=== PATIENT | male | born 1970 | race African-American/Black ===

== ENCOUNTER 2023-06-24 20:03 | Emergency (ER) | payer SELFPAY ==
[2023-06-24] MEDS ORDERED: Sodium Chloride 0.9% 1,000 ML IV ONE ×3 (20:27→21:07)
[2023-06-24 21:01] LABS: BASE EXCESS VENOUS -7.2 (-2.0-3.0); BICARBONATE,VENOUS 20 mEq/L (23-28); PCO2 VENOUS 46 mmHG (41-51); PH,VENOUS 7.25 (7.31-7.41)
[2023-06-24 21:03] LABS: PO2 VENOUS < 30 mmHG
[2023-06-24 21:06] LABS: BASOPHILS PERCENT AUTO 0.3 % (0.0-1.5); EOSINOPHILS PERCENT AUTO 0.5 % (0.0-7.0); HEMATOCRIT 54.3 % (38.0-50.0); HEMOGLOBIN 19.2 g/dL (13.0-17.0); LYMPHOCYTES ABSOLUTE AUTO 1.7 K/uL (0.6-2.4); LYMPHOCYTES PERCENT AUTO 27.6 % (16.0-40.0); MEAN CORPUSCULAR HEMOGLOBIN 24.8 pg (27.0-32.0); MEAN CORPUSCULAR HGB CONC 35.4 g/dL (31.0-37.0); MEAN CORPUSCULAR VOLUME 70.2 fL (80.0-98.0); MONOCYTES ABSOLUTE AUTO 0.3 K/uL (0.0-0.8); MONOCYTES PERCENT AUTO 5.4 % (0.0-15.0); NEUTROPHILS PERCENT AUTO 66.2 % (48.0-80.0); NRBC ABSOLUTE 0 K/uL; PLATELET COUNT,PLT 207 K/uL (150-400); RED BLOOD CELL COUNT 7.74 M/uL (4.50-5.90); WHITE BLOOD CELL COUNT,WBC 6.06 K/uL (4.0-11.0)
[2023-06-24 21:33] LABS: LACTIC ACID 2.6 mmol/L (0.4-2.0)
[2023-06-24 21:40] LABS: A/G RATIO 0.8 (0.9-1.6); ALBUMIN 4.2 g/dL (3.4-5.0); BILIRUBIN TOTAL 0.5 mg/dL (0.2-1.0); CALCIUM 10.1 mg/dL (8.5-10.1); CARBON DIOXIDE,CO2 20.9 mmol/L (21.0-32.0); CREATININE 1.8 mg/dL (0.8-1.3); EST CRCL DRUG DOSING (CG) 50.13 mL/min; MAGNESIUM 2.5 mg/dL (1.8-2.4); POTASSIUM,K 5.4 mmol/L (3.5-5.1); PROTEIN TOTAL,TP 9.4 g/dL (6.4-8.2)
[2023-06-24] MEDS ORDERED: Insulin Regular, Human 100 Units/ML 10 ML Vial IVPUSH ONE (21:46)
[2023-06-24] MEDS ORDERED: Ketorolac 30 MG/ML SDV IVPUSH ONE (22:35)
== END 2023-06-24 23:11 | disposition home or self-care (01) ==
LOC: MW.ED 20:03
DX: E11.65 Type 2 diabetes mellitus with hyperglycemia (principal); I10 Essential (primary) hypertension; Z91.148 Patient's other noncompliance with medication regimen for other reason; Z79.4 Long term (current) use of insulin; Z88.0 Allergy status to penicillin; Z88.8 Allergy status to other drugs, medicaments and biological substances
CPT/HCPCS: 36415; 80053; 82009; 82803; 82947; 83605; 83690; 83735; 84484; 85025; 96361; 96374; 99284; J1815; J1885; J7030

== ENCOUNTER 2024-03-24 16:00 | Emergency (ER) | payer SELFPAY ==
[2024-03-24 16:55] LABS: BASOPHILS ABSOLUTE AUTO 0.03 K/uL (0.00-0.20); BASOPHILS PERCENT AUTO 0.6 % (0.0-1.0); EOSINOPHILS ABSOLUTE AUTO 0.07 K/uL (0.00-0.45); EOSINOPHILS PERCENT AUTO 1.3 % (0.0-6.0); HEMATOCRIT 49.6 % (42.0-52.0); HEMOGLOBIN 17.3 g/dL (14.0-18.0); IMMATURE GRAN ABSOLUTE AUTO 0.01 K/uL (0.00-0.05); IMMATURE GRAN PERCENT AUTO 0.2 % (0.0-0.4); LYMPHOCYTES ABSOLUTE AUTO 1.96 K/uL (1.00-4.80); LYMPHOCYTES PERCENT AUTO 37.5 % (24.0-44.0); MEAN CORPUSCULAR HEMOGLOBIN 24.8 pg (28.0-32.0); MEAN CORPUSCULAR HGB CONC 34.9 g/dL (32.0-36.0); MEAN CORPUSCULAR VOLUME 71.1 fL (83.0-99.0); MEAN PLATELET VOLUME 10.2 fL (9.4-12.4); MONOCYTES ABSOLUTE AUTO 0.42 K/uL (0.00-0.80); NEUTROPHILS ABSOLUTE AUTO 2.74 K/uL (1.80-7.70); NEUTROPHILS PERCENT AUTO 52.4 % (41.0-71.0); PLATELET COUNT,PLT 207 K/uL (150-400); RED BLOOD CELL COUNT 6.98 M/uL (4.52-5.90); WHITE BLOOD CELL COUNT,WBC 5.23 K/uL (3.9-11.3)
[2024-03-24] MEDS: Sodium Chloride 0.9% 10 ML Syringe FLUSH PRN (17:00)
[2024-03-24] MEDS: Sodium Chloride 0.9% 2.5 ML Syringe FLUSH PRN (17:00)
[2024-03-24 17:17] LABS: A/G RATIO 0.9 (0.9-1.6); ALBUMIN 3.8 g/dL (3.4-5.0); BILIRUBIN TOTAL 0.3 mg/dL (0.2-1.0); CALCIUM 9.2 mg/dL (8.5-10.1); CARBON DIOXIDE,CO2 26.5 mmol/L (21.0-32.0); CREATININE 1.4 mg/dL (0.8-1.3); EST CRCL DRUG DOSING (CG) 61.72 mL/min; POTASSIUM,K 4.4 mmol/L (3.5-5.1); PROTEIN TOTAL,TP 7.9 g/dL (6.4-8.2)
[2024-03-24 17:20] LABS: LACTIC ACID 1.4 mmol/L (0.4-2.0)
[2024-03-24 17:37] LABS: INR 1.02 (0.86-1.11)
[2024-03-24] MEDS: Sodium Chloride 0.9% 500 ML IV STA (17:53)
== END 2024-03-24 18:17 | disposition home or self-care (01) ==
LOC: MW.ED 16:00
DX: K92.1 Melena (principal); I10 Essential (primary) hypertension; E11.9 Type 2 diabetes mellitus without complications; Z88.0 Allergy status to penicillin; Z88.8 Allergy status to other drugs, medicaments and biological substances; Z79.4 Long term (current) use of insulin; Z79.899 Other long term (current) drug therapy; Z75.8 Other problems related to medical facilities and other health care
CPT/HCPCS: 36415; 80053; 83605; 83690; 85025; 85610; 86850; 86900; 86901; 99284; J3490; J7030; 99282